=== PATIENT | male | born 1990 | race Caucasian/White ===

== ENCOUNTER 2023-09-12 12:14 | Emergency (ER) | payer OTHER ==
[~2023-09-12] VITALS: Ht 185.4 cm; Wt 122.5 kg
== END 2023-09-12 14:10 | disposition home or self-care (01) ==
LOC: ER 12:14
DX: S83.92XA Sprain of unspecified site of left knee, initial encounter (principal); V00.131A Fall from skateboard, initial encounter; Z91.030 Bee allergy status
CPT/HCPCS: 73562-LT; 99283-25